=== PATIENT | male | born 1990 | race Two or more races ===

== ENCOUNTER 2018-06-17 18:14 | Emergency (ER) | payer SELFPAY ==
[~2018-06-17] VITALS: Ht 180.3 cm; Wt 112.0 kg
--- NOTE | 2018-06-17 18:30 | NUR ---
PATIENT BROUGHT SELF IN FOR INCREASED SWELLING AND REDNESS TO LLE WITH POSSIBLE SPIDER BITE. ALSO STATES EXCEMA IS FLARING UP. PULSES PRESENT. WARM TO TOUCH.
[2018-06-17] MEDS ORDERED: CEPHALEXIN MONOHYDRATE 500 MG CAPSULE PO ONE ×2 (18:41→19:00)
[2018-06-17] MEDS ORDERED: SULFAMETH/TRIMETH 800/160 MG 1 UDTAB TABLET PO ONE ×2 (18:41→19:00)
[2018-06-17] MEDS ORDERED: IBUPROFEN 600 MG TABLET PO ONE ×2 (18:41→19:00)
--- NOTE | 2018-06-17 19:05 | NUR ---
Patient discharged to home in stable condition. Written and verbal after care instructions given. Patient verbalizes understanding of instruction.
[2018-06-17 19:30] VITALS: BP 149/80
== END 2018-06-17 19:05 | disposition home or self-care (01) ==
LOC: ER 18:16
DX: L03.116 Cellulitis of left lower limb (principal); L30.9 Dermatitis, unspecified; B35.1 Tinea unguium